=== PATIENT | female | born 1955 ===

== ENCOUNTER → 2022-03-05 | Outpatient (CLI) | payer MEDICAID ==
--- NOTE | 2022-03-05 08:15 | CT ---
EXAMINATION TYPE: CT brain wo con DATE OF EXAM: 03/05/2022 COMPARISON: None HISTORY: Intractable Migraine CT DLP: 1108.[address] of the brain was performed. The ventricles, basal cisterns and sulci overlying the cerebral convexities demonstrate mild enlargem ent. There appears to be an area of small insults remote in appearance of posterior right parietal lo be. There is no evidence for intracranial hemorrhage or sulcal effacement. There is decreased attenuation about the periventricular white matter and deep white matter of both c erebral hemispheres, compatible with chronic small vessel ischemia. Differential diagnosis does inclu de demyelination. No mass effects are seen.No midline shift. Osseous calvarium is intact. If symptoms persist consider MRI. IMPRESSION: 1. Age related atrophic and chronic small vessel ischemic change without acute intracranial process s een at this time.
== END | disposition home or self-care (01) ==
LOC: RADCTMAIN 07:45
PROVIDERS: ATTEND Family Medicine
DX: G31.9 Degenerative disease of nervous system, unspecified (principal); I67.82 Cerebral ischemia; R10.2 Pelvic and perineal pain; M54.6 Pain in thoracic spine
CPT/HCPCS: 70450

== ENCOUNTER → 2022-03-18 | Outpatient (CLI) | payer MEDICAID ==
--- NOTE | 2022-03-19 05:48 | MR ---
EXAMINATION TYPE: MR brain wo con DATE OF EXAM: 03/18/2022 COMPARISON: CT brain March 05, 2022 HISTORY: HEADACHE, UNSPECIFIED TECHNIQUE: Multiplanar, multisequence imaging of the brain and brainstem is performed without IV cont rast. FINDINGS: The ventricular system and cisternal spaces are normal in size and appearance. The brain volume is a ge appropriate. There are scattered foci of T2 hyperintensity seen throughout the white matter bilate rally. Approximately 20 scattered lesions are seen. Largest lesions inferior right parietal lobe ther e is axial image 17 show increased signal on diffusion-weighted images, one 4 to 5 mm focus shows dim inished signal on ADC mapping additional areas of low signal on ADC mapping also present.. Areas of i nfarct at this level need to be considered. Midline structures demonstrate normal morphology. The craniocervical junction appears within normal limits. Normal vascular flow voids are present. The visualized sinuses are clear and the globes are i ntact. Nasal septum remains slightly deviated to the right of midline. IMPRESSION: 1. Small areas of acute lacunar infarct inferior right parietal lobe posterior watershed region are t hought present. 2. Mild to moderate nonspecific white matter changes may be on basis of altered vascular mechanics re lated to product of migraine headaches and/or Product of chronic small vessel ischemic change.
== END | disposition home or self-care (01) ==
LOC: RADMRIMAIN 16:25
PROVIDERS: ATTEND Student in an Organized Health Care Education/Training Program
DX: I63.81 Other cerebral infarction due to occlusion or stenosis of small artery (principal)
CPT/HCPCS: 70551

== ENCOUNTER → 2022-12-28 | Outpatient (CLI) | payer MEDICAID ==
[2022-12-28 16:34] LABS: Basophils # (A) 0.03 X 10*3/uL (0.00-0.10); Basophils % (A) 0.6 %; Eosinophils # (A) 0.21 X 10*3/uL (0.04-0.35); Eosinophils % (A) 4.4 %; HCT 37.3 % (37.2-46.3); Lymphocytes # (A) 1.45 X 10*3/uL (0.90-5.00); Lymphocytes % (A) 30.1 %; MCHC 32.2 d/dL (32.0-37.0); MCV 86.9 FL (80.0-97.0); Mean Platelet Volume 10.2 FL (9.5-12.2); Monocytes # (A) 0.47 X 10*3/uL (0.20-1.00); Monocytes % (A) 9.8 %; NRBC Per 100 WBC 0 X 10*3/uL (0.00-0.01); Neutrophils # (A) 2.65 X 10*3/uL (1.80-7.70); Neutrophils % (A) 54.9 %; Platelet Count 285 X 10*3/uL (140-440); RBC 4.29 X 10*6/uL (4.10-5.20); RDW 13.9 % (11.5-14.5); WBC 4.82 X 10*3/uL (4.50-10.00)
[2022-12-28 17:03] LABS: ALT 21 U/L (8-44); AST 15 U/L (13-35); Albumin 4.1 d/dL (3.8-4.9); Albumin/Globulin Ratio 1.21 Ratio (1.60-3.17); Alkaline Phosphatase 72 U/L (41-126); BUN/Creat Ratio 14.38 Ratio (12.00-20.00); Blood Urea Nitrogen 11.5 mg/dL (9.0-27.0); Calcium 9.3 mg/dL (8.7-10.3); Carbon Dioxide 24.1 mmol/L (21.6-31.8); Chloride 106 mmol/L (96-109); Chol/HDL Ratio 2.51 Ratio; Globulin 3.4 d/dL (1.6-3.3); Glucose 101 mg/dL (70-110); LDL Cholesterol,Calculated 49.9 mg/dL (0.0-131.0); Potassium 3.8 mmol/L (3.5-5.5); Sodium 139 mmol/L (135-145); Total Bilirubin 0.4 mg/dL (0.3-1.2); Total Protein 7.5 d/dL (6.2-8.2); VLDL Calculation 12.14 mg/dL (5.00-40.00)
== END | disposition home or self-care (01) ==
LOC: LABWHC1 09:57
PROVIDERS: ATTEND Student in an Organized Health Care Education/Training Program
DX: I10 Essential (primary) hypertension (principal); E78.5 Hyperlipidemia, unspecified; Z83.3 Family history of diabetes mellitus
CPT/HCPCS: 36415; 80053; 80061; 83036; 84443; 85025

== ENCOUNTER → 2023-08-24 | Outpatient (CLI) | payer MEDICAID ==
[2023-08-24 11:36] LABS: Basophils # (A) 0.01 X 10*3/uL (0.00-0.10); Basophils % (A) 0.1 %; Eosinophils % (A) 1.1 %; HCT 37.3 % (37.2-46.3); HGB 11.9 g/dL (12.0-15.0); Lymphocytes # (A) 3.05 X 10*3/uL (0.90-5.00); Lymphocytes % (A) 33.3 %; MCH 27.8 pg (27.0-32.0); MCHC 31.9 g/dL (32.0-37.0); MCV 87.1 FL (80.0-97.0); Mean Platelet Volume 9.4 FL (9.5-12.2); Monocytes # (A) 0.61 X 10*3/uL (0.20-1.00); Monocytes % (A) 6.7 %; NRBC Per 100 WBC 0 X 10*3/uL (0.00-0.01); Neutrophils # (A) 5.37 X 10*3/uL (1.80-7.70); Neutrophils % (A) 58.5 %; Platelet Count 376 X 10*3/uL (140-440); RBC 4.28 X 10*6/uL (4.10-5.20); RDW 12.8 % (11.5-14.5); WBC 9.17 X 10*3/uL (4.50-10.00)
[2023-08-24 12:04] LABS: BUN/Creat Ratio 17.56 Ratio (12.00-20.00); Blood Urea Nitrogen 15.8 mg/dL (9.0-27.0); C Reactive Protein <0.30 mg/dL (0.00-0.80); Carbon Dioxide 24.2 mmol/L (21.6-31.8); Chloride 109 mmol/L (96-109); Chol/HDL Ratio 2.44 Ratio; Glucose 98 mg/dL (70-110); LDL Cholesterol,Calculated 59.5 mg/dL (0.0-131.0); Potassium 3.7 mmol/L (3.5-5.5); Rheumatoid Factor, Qnt 40 IU/mL (0-15); Sodium 142 mmol/L (135-145); Uric Acid 2.7 mg/dL (2.9-7.7); VLDL Calculation 8.26 mg/dL (5.00-40.00)
[2023-08-24 12:05] LABS: ALT 20 U/L (8-44); AST 11 U/L (13-35); Albumin 4.1 g/dL (3.8-4.9); Albumin/Globulin Ratio 1.14 Ratio (1.60-3.17); Alkaline Phosphatase 57 U/L (41-126); Calcium 10.4 mg/dL (8.7-10.3); Globulin 3.6 g/dL (1.6-3.3); Total Bilirubin <0.2 mg/dL (0.3-1.2); Total Protein 7.7 g/dL (6.2-8.2)
[2023-08-24 12:50] LABS: Erythrocyte Sedimentation Rate 53 mm/Hr (0-30)
[2023-08-24 16:15] LABS: Anti-DNA, DS unit <1.0 IU/mL; DNA Double-Stranded Negative (Negative)
[2023-08-24 19:52] LABS: Cyclic Citrull Pep IgG Unit >200.0 U/mL (<=3.9); Cyclic Citrullinated Pep IgG Positive
== END | disposition home or self-care (01) ==
LOC: LABWHC1 07:46
PROVIDERS: ATTEND Student in an Organized Health Care Education/Training Program
DX: I10 Essential (primary) hypertension (principal); M25.50 Pain in unspecified joint; E78.5 Hyperlipidemia, unspecified; R53.83 Other fatigue; R73.09 Other abnormal glucose; Z83.3 Family history of diabetes mellitus
CPT/HCPCS: 36415; 80053; 80061; 83036; 84443; 84550; 85025; 85652; 86038; 86039; 86140; 86200; 86225; 86431